=== PATIENT | male | born 1980 | race Caucasian/White ===

== ENCOUNTER → 2018-09-21 | Outpatient (CLI) | payer MEDICARE, OTHER ==
[~2018-09-21] MED LIST: AMPDEX15CR PO; ASCO500; ATOM40; CLIN300 PO; CLON2; CLON2 PO; Calcium + Vita1 EACH; DIAZ5; DIAZ5 PO; HYDACE25S PR; HYDACE5 PO; HYDCOR1TOA TOP; HYDMOR2 PO; HYDMOR4 PO; K-Dur20 MEQ PO; Klonopin1 MG PO; Lotrimin Ultra12 GM TOP; METPHE10; METPHE10 PO; Magnesium500 MG; Miralax17 GM PO; Mobic15 MG PO; PROM25 PO; RECTICARE30 GM TP; ROXICODONE5 MG PO; STOOL SOFTENER PRN; STOOL SOFTNER; Valium5 MG PO
[2018-09-21 15:45] LABS: BASOPHILS ABSOLUTE AUTO 0.03 K/mm3 (0.00-0.23); BASOPHILS PERCENT AUTO 1 % (0-2); EOSINOPHILS ABSOLUTE AUTO 0.07 K/mm3 (0.00-0.68); EOSINOPHILS PERCENT AUTO 2 % (0-6); Hemoglobin 15.2 g/dL (13.5-17.5); IMMATURE GRAN ABSOLUTE AUTO 0.01 K/mm3 (0.00-0.10); IMMATURE GRAN PERCENT AUTO 0 % (0-1); LYMPHOCYTES PERCENT AUTO 39 % (21-46); MONOCYTES PERCENT AUTO 9 % (4-13); Mean Corpuscular HGB 31.2 pg (26.0-34.0); Mean Corpuscular HGB Conc 33.8 g/dL (31.5-36.5); Mean Corpuscular Volume 92 fL (80-100); Mean Platelet Volume 10.2 fL (9.1-12.4); NEUTROPHILS ABSOLUTE AUTO 2.33 K/mm3 (1.96-9.15); NEUTROPHILS PERCENT AUTO 50 % (41-73); Platelet Count 342 K/mm3 (150-400); RDW Coefficient Variation 12.3 % (11.7-14.2); RDW Standard Deviation 41.4 fL (35.1-46.3); Red Blood Cell Count 4.87 M/mm3 (4.30-5.90); White Blood Cell Count 4.64 K/mm3 (4.00-11.30)
[2018-09-21 16:00] LABS: Alanine Aminotransfer (ALT/SGP 24 U/L (12-78); Albumin, Blood 4.2 g/dL (3.4-5.0); Albumin/Globulin Ratio 1.4 (0.8-1.8); Alk Phos 51 U/L (40-126); Anion Gap 8 mmol/L (6-16); Aspartate Aminotrans (AST/SGOT 16 U/L (12-37); Bilirubin, Total 0.4 mg/dL (0.1-1.0); Blood Urea Nitrogen 13 mg/dL (8-24); CO2, Blood 28 mmol/L (21-32); Calcium, Blood 9.2 mg/dL (8.5-10.1); Chloride, Blood 104 mmol/L (98-108); Glomerular Filtration Rate >60 (60-); Glucose, Blood 109 mg/dL (70-99); Potassium, Blood 4.3 mmol/L (3.5-5.5); Sodium, Blood 140 mmol/L (136-145); Total Protein, Blood 7.2 g/dL (6.4-8.2)
[2018-09-24 02:11] LABS: CHLAMYDIA TRACHOMATIS, NAA Negative (Negative); NEISSERIA GONORRHOEAE, NAA Negative (Negative)
== END | disposition home or self-care (01) ==
LOC: LAB EV 15:39 → LAB SHORT 15:39
PROVIDERS: Physician Assistant
DX: R52 Pain, unspecified (principal); R53.83 Other fatigue; R30.0 Dysuria
CPT/HCPCS: 80053; 84443; 85025; 85651; 87070; 87205; 87491; 87591

== ENCOUNTER 2021-12-20 07:29 | Day surgery (SDC) | payer MEDICARE, OTHER ==
[~2021-12-20] VITALS: Ht 180.3 cm; Wt 79.1 kg
[2021-12-20] MEDS ORDERED: PROM25 (08:16)
[2021-12-20] MEDS ORDERED: SUMA25 PO (08:17)
== END 2021-12-20 10:04 | disposition home or self-care (01) ==
LOC: ORSCSDS 07:29
PROVIDERS: Orthopaedic Surgery
PROC: 01N50ZZ Release Median Nerve, Open Approach (ICD-10-PCS; principal; 2021-12-20 09:00)
DX: G56.03 Carpal tunnel syndrome, bilateral upper limbs (principal); F41.8 Other specified anxiety disorders; F31.9 Bipolar disorder, unspecified; Z87.891 Personal history of nicotine dependence; F43.10 Post-traumatic stress disorder, unspecified; Z79.899 Other long term (current) drug therapy
CPT/HCPCS: J1100; J2250; J2405; J2704; J3010; J7120

== ENCOUNTER → 2022-12-30 | Outpatient (CLI) | payer MEDICARE, OTHER ==
[~2022-12-30] MED LIST changes: +PROM25; +SUMA25 PO
[2022-12-31 13:00] LABS: Source, Urine Clean Catch
[2022-12-31 13:26] LABS: Appearance, Urine Clear (Clear); Bilirubin, Urine Neg (Neg); Blood, Urine 1+ (Neg); Color, Urine Yellow (P-Yellow); Glucose Qualitative, Urine Neg (Neg); Ketones, Urine Neg (Neg); Leukocyte Esterase, Urine Neg (Neg); Nitrite, Urine Neg (Neg); Protein, Urine Neg (Neg); Specific Gravity, Urine 1.015 (1.003-1.022); Urobilinogen, Urine NORM (Normal)
[2022-12-31 13:40] LABS: Bacteria Rare /hpf; Calcium Oxalate Crystals Few /hpf; Red Blood Cells, Urine 0-2 /hpf (0-2); Squamous Epithelial Cells Rare /hpf (Few); White Blood Cells, Urine 0-2 /hpf (0-5)
== END ==
LOC: LAB 13:00 → LAB SHORT 13:00
PROVIDERS: Physician Assistant
DX: R35.0 Frequency of micturition (principal)
CPT/HCPCS: 81001